=== PATIENT | female | born 1975 | race African-American/Black ===

== ENCOUNTER 2025-08-10 09:51 | Emergency (ER) | payer OTHER, SELFPAY ==
[2025-08-10 10:04] VITALS: BP 123/65; PULSE 78; RESP 18; TEMP 36.5; O2SAT 98
[2025-08-10 10:21] LABS: EDUAAPPEAR Cloudy; EDUABILI Negative (Negative); EDUABLOOD Negative (Negative); EDUACOLOR1 Dark; EDUAGLUCOSE Negative (Negative); EDUAKETONE Negative (Negative); EDUALEUKO Trace (Negative); EDUANITRATE Negative (Negative); EDUAPH 6.0; EDUAPROTEIN Negative (Negative); EDUASPGRAVITY 1.025; EDUAUROBILI 0.2
--- NOTE | 2025-08-10 10:42 | ED.FEMALEGU ---
HPI - Female Genitourinary General Chief complaint: Urogenital-Female Stated complaint: UTI Source: patient and RN notes reviewed Mode of arrival: ambulatory Limitations: no limitations History of Present Illness HPI Narrative: 50-year-old female presents to the [facility] complaining of vaginal discharge and foul-smelling discharge the last few days. Patient denies any concern for STDs reports she is protected sexual intercourse with her partner. Patient denies any dysuria, frequency, hesitancy, fevers, body aches, chills, nausea, vomiting, abdominal pain, back pain, flank pain blood in her urine, or any other symptoms. Patient is not taking [id number] help with symptoms. Related Data Home Medications ?Medication ?Instructions ?Recorded ?Confirmed ?Last Taken ?Type drospirenone (contraceptive) 4 mg 08/10/25 Unknown History (28) tablet (Slynd) Allergies Allergy/AdvReac Type Severity Reaction Status Date / Time No Known Allergies Allergy Verified 08/10/25 10:15 Review of Systems Review of Systems: CONSTITUTIONAL: Denies fever, chills, or sweats. EYES: Denies visual changes, redness, or discharge. ENT: Denies rhinorrhea, congestion, sore throat, or otalgia. CARDIOVASCULAR: Denies chest pain, palpitations, or edema. RESPIRATORY: Denies cough or dyspnea. GASTROINTESTINAL: Denies abdominal pain, nausea, vomiting, or diarrhea. GENITOURINARY: Denies dysuria, frequency, hesitancy, vaginal bleeding, pelvic pain, or hematuria. Positive for vaginal discharge. SKIN: Denies rash or itching. MUSCULOSKELETAL: Denies back pain, joint pain, or myalgia. NEUROLOGIC: Denies headache, numbness, or weakness. PSYCHIATRIC: Denies anxiety or depression. All other systems reviewed are negative, except as documented in HPI. PMFSH Comments At the time of my signature, I reviewed and agree with the nursing past medical, surgical, social, and family history. There is no relevant family history pertinent to the patient complaint. Exam Narrative: GENERAL: This is a well-nourished, well-developed adult, in no apparent distress. They are non ill-appearing, nontoxic appearing. HEAD: normocephalic, atraumatic. EYES: Sclera clear/white. Conjunctiva normal. Vision is grossly intact. Extraocular movements intact EARS: External ears normal, Hearing grossly intact. NOSE: External nose normal THROAT: Mucous membranes moist, NECK: Neck supple, non-tender without lymphadenopathy, masses or thyromegaly. CARDIOVASCULAR: Regular rate and rhythm without murmurs, gallops, or rubs. RESPIRATORY: Clear to auscultation. Breath sounds equal bilaterally. No wheezes, rales, or rhonchi. GASTROINTESTINAL: Abdomen soft, non-tender, nondistended. Bowel sounds are active. No hepato-splenomegaly, or palpable masses. No guarding or rigidity. No rebound tenderness. GENITOURINARY: Patient declined speculum and pelvic exam. SKIN: warm, Dry, intact with no suspicious lesions or rash, good texture and turgor. NEURO: awake, alert, and oriented to person, place and time. There were no obvious focal neurologic abnormalities. EXTREMITIES: No joint tenderness, effusion, or edema noted. BACK: Nontender without deformity. No CVA tenderness. Course Course Emergency Course: Portions of this record may have been created with voice recognition software Level of Care: Express Care Visit Vital Signs Vital signs: Vital Signs Temperature 97.7 F 08/10/25 10:04 Pulse Rate 78 08/10/25 10:04 Respiratory Rate 18 08/10/25 10:04 Blood Pressure 123/65 08/10/25 10:04 Pulse Oximetry 98 08/10/25 10:04 Oxygen Delivery Room Air 08/10/25 10:04 Temperature 97.7 F 08/10/25 10:04 Pulse Rate 78 08/10/25 10:04 Respiratory Rate 18 08/10/25 10:04 Blood Pressure 123/65 08/10/25 10:04 Pulse Oximetry 98 08/10/25 10:04 Oxygen Delivery Room Air 08/10/25 10:04 Reviewed MDM - Female Genitourinary MDM Narrative Medical decision making narrative: Urine dipstick with 1+ leukocytes. Urine cultures pending. Symptoms are not consistent with urinary tract infection. Patient likely has bacterial vaginosis. Offered patient STD testing and vaginal swabs and she has declined. Patient adamantly denies any concerns for STDs. Go ahead and treat for bacterial vaginosis with Flagyl. Advised patient to follow-up with OBGYN her PCP if symptoms persist. Discussed physical exam findings. Advised supportive measures and signs/symptoms to go to the ER. Pt is appropriate for outpt treatment and f/u. Differential Diagnosis Differential diagnosis: Likely urinary tract infection, bacterial vaginosis, vaginitis and other (STI) Lab Data Attestation: I reviewed the patient's lab results. Labs: Lab Results 08/10/25 Range/Units 10:19 POC Urine Color Dark POC Urine Clarity Cloudy POC Urine pH 6.0 POC Ur Specif [place] 1.025 POC Urine Protein Negative (Negative) POC Ur Glucose (UA) Negative (Negative) POC Urine Ketones Negative (Negative) POC Urine Blood Negative (Negative) POC Urine Nitrite Negative (Negative) POC Urine Bilirubin Negative (Negative) POC Urine Urobilinogen 0.2 POC U Leukocyte Esteras Trace (Negative) Critical Care Time Critical Care Time Critical Care Time: No Discharge Plan Discharge Clinical Impression: Bacterial vaginosis Patient Disposition: Home Condition: Stable Instructions: Antibiotic Form, Bacterial Vaginosis (ED) Additional Instructions: Your urine will be sent of for a culture to determine if bacteria is causing your symptoms. If the culture shows a UTI, you will be notified and an antibiotic will be called in for you. Her symptoms appear to be more consistent with a bacterial vaginosis. Take the Flagyl as directed. Take with food. Avoid alcohol use while taking Flagyl as it may make you very sick. you will need to follow up with your PCP your OBGYN for further evaluation and treatment if symptoms persist, call today to schedule follow-up appointment. Go to the ER if he develops severe abdominal pain, pelvic pain, severe vaginal bleeding, going through 1 pad an hour, fevers, nausea, vomiting, or any serious concerns. Patient Language: Telugu Prescriptions: New metronidazole 500 mg tablet 500 mg PO BID 7 Days Qty: 14 0RF No Action Slynd 4 mg (28) tablet Follow-up/Referrals: Philip Carson MD [Physician, PATHOLOGY SUPERVISOR] - 1 Week Jefferson Torrez MD [Physician, Family Practice] Time of Disposition: 10:33
== END 2025-08-10 10:45 | disposition home or self-care (01) ==
DX: N76.0 Acute vaginitis (principal)
CPT/HCPCS: 81003; 87086; 99203; G0463

== ENCOUNTER 2025-08-23 11:31 | Emergency (ER) | payer OTHER, SELFPAY ==
[2025-08-23 11:39] VITALS: BP 113/61; PULSE 72; RESP 16; TEMP 36.5; O2SAT 99
[2025-08-23 11:54] LABS: EDSTREPNEGPOS1 Negative (Negative)
--- NOTE | 2025-08-23 12:06 | ED.URI ---
HPI - URI/Sore Throat General Chief Complaint: Upper Respiratory Infection Stated Complaint: sore throat Time Seen by Provider: 08/23/25 11:50 Source: patient and RN notes reviewed Mode of arrival: ambulatory Limitations: no limitations History of Present Illness HPI Narrative: 50-year-old female presents Express Care complaining of sore throat, congestion, mucopurulent nasal drainage, headaches, runny nose for 5 days. Patient's she woke up today with significantly worsening symptoms, she thought her symptoms were improving. Patient denies any cough, earache, nausea, vomiting, diarrhea, chest pain, difficulty breathing, or any other symptoms. Related Data Home Medications ?Medication ?Instructions ?Recorded ?Confirmed ?Last Taken ?Type drospirenone (contraceptive) 4 mg 08/10/25 Unknown History (28) tablet (Slynd) Allergies Allergy/AdvReac Type Severity Reaction Status Date / Time No Known Allergies Allergy Verified 08/23/25 11:44 Review of Systems Review of Systems: CONSTITUTIONAL: Denies fever, chills, or sweats. EYES: Denies visual changes, redness, or discharge. ENT: Positive for rhinorrhea, congestion, sore throat. Negative for or otalgia. CARDIOVASCULAR: Denies chest pain, palpitations, or edema. RESPIRATORY: Denies cough or dyspnea. GASTROINTESTINAL: Denies abdominal pain, nausea, vomiting, or diarrhea. GENITOURINARY: Denies dysuria or hematuria. SKIN: Denies rash or itching. MUSCULOSKELETAL: Denies back pain, joint pain, or myalgia. NEUROLOGIC: Positive for headache. Negative for numbness, or weakness. PSYCHIATRIC: Denies anxiety or depression. All other systems reviewed are negative, except as documented in HPI. PMFSH Comments At the time of my signature, I reviewed and agree with the nursing past medical, surgical, social, and family history. There is no relevant family history pertinent to the patient complaint. Exam Narrative: GENERAL: This is a well-nourished, well-developed adult, in no apparent distress. They are non ill-appearing, nontoxic appearing. HEAD: normocephalic, atraumatic. EYES: Sclera clear/white. Conjunctiva normal. Vision is grossly intact. Extraocular movements intact EARS: External ears normal, auditory canals clear and without drainage, TMs normal without perforation. Hearing grossly intact. NOSE: External nose normal with no obvious nasal discharge, nasal turbinates erythematous with exudate. Norhinorrhea. THROAT: Mucous membranes moist, posterior pharynx erythematous. Tonsils 2+ that redness or swelling. Uvula midline. Postnasal drip present. NECK: Neck supple, nontender with mild cervical lymphadenopathy, no masses or thyromegaly. CARDIOVASCULAR: Regular rate and rhythm without murmurs, gallops, or rubs. RESPIRATORY: Clear to auscultation. Breath sounds equal bilaterally. No wheezes, rales, or rhonchi. SKIN: warm, Dry, intact with no suspicious lesions or rash, good texture and turgor. NEURO: awake, alert, and oriented to person, place and time. There were no obvious focal neurologic abnormalities. EXTREMITIES: No joint tenderness, effusion, or edema noted. Course Course Emergency Course: Portions of this record may have been created with voice recognition software Level of Care: Express Care Visit Vital Signs Vital signs: Vital Signs Temperature 97.7 F 08/23/25 11:39 Pulse Rate 72 08/23/25 11:39 Respiratory Rate 16 08/23/25 11:39 Blood Pressure 113/61 08/23/25 11:39 Pulse Oximetry 99 08/23/25 11:39 Oxygen Delivery Room Air 08/23/25 11:39 Temperature 97.7 F 08/23/25 11:39 Pulse Rate 72 08/23/25 11:39 Respiratory Rate 16 08/23/25 11:39 Blood Pressure 113/61 08/23/25 11:39 Pulse Oximetry 99 08/23/25 11:39 Oxygen Delivery Room Air 08/23/25 11:39 Reviewed MDM - URI/Sore Throat MDM Narrative Medical decision making narrative: Rapid strep negative. A throat culture is pending. Given patient's worsening symptoms and wax and waning of symptoms likely she has developed bacterial sinusitis. Will treat with Augmentin. Discussed physical exam findings. Advised supportive measures and signs/symptoms to go to the ER. Pt is appropriate for outpt treatment and f/u. Differential Diagnosis Differential diagnosis: Likely upper respiratory infection, sinusitis, viral infection and pharyngitis Lab Data Attestation: I reviewed the patient's lab results. Labs: Lab Results 08/23/25 Range/Units 11:51 POC Grp A Strep Screen Negative (Negative) Critical Care Time Critical Care Time Critical Care Time: No Discharge Plan Discharge Clinical Impression: Sinusitis Qualifiers: Sinusitis location: unspecified location Chronicity: acute Recurrence: non-recurrent Qualified Code(s): J01.90 - Acute sinusitis, unspecified Patient Disposition: Home Condition: Stable Instructions: Antibiotic Form, Sinusitis (ED) Additional Instructions: Rapid strep is negative. A throat culture is pending if it is positive for strep you will be contacted. Take the antibiotics as directed and complete the course even if you start to feel better. You may use a Neti pot saline rinse 3 times a day with lukewarm distilled water Continue to take Tylenol or Motrin for pain. Follow instructions on the bottle for dosing. Use a humidifier or vaporizer at night. Drink plenty of water. 8-10 glasses per day. Use flonase 2 times per day for 5 days then as needed Take mucinex 2 times per day and be sure to take with 8oz of water. Follow up with Primary provider in 3-5 days Please go to the ER if he develops any difficulty breathing, worsening symptoms, chest pain, nausea vomiting a or any other concerns Patient Language: Ugandan Prescriptions: New amoxicillin-pot clavulanate 875-125 mg tablet 1 tablet PO Q12H 7 Days Qty: 14 0RF No Action Slynd 4 mg (28) tablet Follow-up/Referrals: PHYSICIAN,CONTROLS DESIGN ENGINEER [Primary Care Provider, Internal Medicine] Stand Alone Forms: Work/School Release IP Time of Disposition: 12:03
== END 2025-08-23 12:08 | disposition home or self-care (01) ==
DX: J01.90 Acute sinusitis, unspecified (principal)
CPT/HCPCS: 87081; 87880; 99213; G0463